=== PATIENT | male | born 1945 | race Two or more races ===

== ENCOUNTER 2016-07-26 15:57 | Emergency (ER) | payer OTHER, MEDICAID ==
[~2016-07-26] VITALS: Ht 167.6 cm; Wt 94.3 kg
[2016-07-26] MEDS ORDERED: SIMV20TA6 PO (16:17)
[2016-07-26] MEDS ORDERED: NAPR500T3 PO (16:17)
[2016-07-26] MEDS ORDERED: HYDR12.55 PO (16:17)
[2016-07-26] MEDS ORDERED: ACET-907 PO (16:17)
[2016-07-26] MEDS ORDERED: LOSA100T15 PO (16:17)
[2016-07-26] MEDS ORDERED: GLIP10TA11 PO (16:17)
[2016-07-26] MEDS ORDERED: LEVO75TA7 PO (16:17)
[2016-07-26 16:32] LABS: BASOPHILS # (AUTO) 0.1 /CMM (0.0-0.2); DIFF TOTAL % 100 %; EOSINOPHILS # (AUTO) 0.1 /CMM (0.0-0.7); EOSINOPHILS % (AUTO) 1.7 % (0.0-6.0); HEMATOCRIT 32 % (39-51); HEMOGLOBIN 10.8 g/dL (13.5-17.5); LYMPHOCYTES # (AUTO) 1.5 /CMM (0.8-4.8); LYMPHOCYTES % (AUTO) 23.9 % (20.0-44.0); MEAN CORPUSCULAR HEMOGLOBIN 33 PG (26.0-33.0); MEAN CORPUSCULAR HGB CONC 34 g/dl (31.0-36.0); MEAN CORPUSCULAR VOLUME 95 fL (80-96); MONOCYTES # (AUTO) 0.6 /CMM (0.1-1.30); MONOCYTES % (AUTO) 9.4 % (2.0-12.0); NEUTROPHILS # (AUTO) 4.1 /CMM (1.8-8.9); PLATELET COUNT (AUTO) 285 /CMM (150-450); RED BLOOD CELL COUNT(AUTO) 3.33 MIL/uL (4.5-6.0); WHITE BLOOD COUNT (AUTO) 6.5 K/uL (4.3-11.0)
[2016-07-26 16:46] LABS: CALCIUM, SERUM 8.5 mg/dL (8.5-10.1); CREATININE 1.8 mg/dL (0.6-1.3); POTASSIUM 3.9 mmol/L (3.5-5.1)
[2016-07-26 16:55] LABS: INR 1.26 (0.87-1.13); PROTHROMBIN TIME 13.6 SECS (9.5-12.7)
[2016-07-26 16:56] LABS: ALBUMIN 2.6 g/dL (3.4-5.0); BILIRUBIN,DIRECT 0.7 mg/dL (0.0-0.2); BILIRUBIN,TOTAL 1.6 mg/dL (0.2-1.0); INDIRECT BILIRUBIN 0.9 mg/dL (0.0-1.1); TOTAL PROTEIN, SERUM 7.3 g/dL (6.4-8.2)
[2016-07-26 18:37] LABS: KETONES,URINE Trace (NEGATIVE); LEUKOCYTE ESTERASE ,URINE Negative (NEGATIVE); PH,URINE 5.5 (5.0-8.0)
[2016-07-26 18:51] VITALS: BP 121/66
[2016-07-26 18:54] LABS: ADD UA MICROSCOPIC NO
== END 2016-07-26 18:53 | disposition home or self-care (01) ==
LOC: ER 16:01
DX: R19.7 Diarrhea, unspecified (principal); I10 Essential (primary) hypertension; K74.60 Unspecified cirrhosis of liver; E03.9 Hypothyroidism, unspecified; E11.9 Type 2 diabetes mellitus without complications
CPT/HCPCS: 36415; 49083; 71010; 80048; 80076; 81001; 83690; 85025; 85730; 93005; 99285; A4606; 76942-TC; 81000-TC; Z7610